=== PATIENT | male | born 1950 | race Caucasian/White ===

== ENCOUNTER 2019-01-01 22:39 | Emergency (ER) | payer MEDICAID, MEDICARE, OTHER ==
[~2019-01-01] VITALS: Ht 167.6 cm; Wt 80.4 kg
[~2019-01-01 22:39] MED LIST: ASPI81TA52 PO; CEFT1FRO2 IV; CIPR500T4 PO; CLOP75TA27 PO; Carvedilol PO; HYDR-4011 PO; INSU100C SC; LANT3I SC; LISI-523 PO; METF100010 PO; METR500T PO; SIMV40TA2 PO
[2019-01-01 22:40] VITALS: Ht 167.6 cm; Wt 80.4 kg
[2019-01-02] MEDS ORDERED: IOHEXOL 300MG/ML 150 ML BTL ONE (01:29)
[2019-01-02] MEDS ORDERED: SOD CHLORIDE 0.9% 100 ML ONE (01:29)
--- NOTE | 2019-01-02 01:41 | ERD ---
ER Documentation Chief Complaint Chief Complaint RECTAL BLEEDING WITH LOW ABD PAIN X1DAY; USES ASA DAILY HPI This is a 68-year-old male complains of left lower quadrant pain onset this morning and this afternoon he had 3 episodes of blood from rectum without stool. He said he felt the urge to defecate but is just a small volume of bright red blood. No history of prior diverticulitis. No fever no back pain no nausea vomiting no anal or rectal pain. The left lower quadrant pain is nonradiating and described as sharp ROS All systems reviewed and are negative except as per history of present illness. Medications Home Meds Active Scripts Hydrocodone/Acetaminophen (Leo 5-325 Tablet) 1 Each Tablet, 1 TAB PO Q6H PRN for PAIN, #16 TAB Prov:KACIE MORENO DO 01/02/19 Metronidazole* (Flagyl*) 500 Mg Tablet, 500 MG PO TID for 10 Days, TAB Prov:KACIE MORENO DO 01/02/19 Ciprofloxacin Hcl* (Ciprofloxacin Hcl*) 500 Mg Tablet, 500 MG PO BID for 10 Days, TAB Prov:KACIE MORENO DO 01/02/19 Insulin Lispro (Humalog) 100 U/Ml Cartridge, 12 UNITS SC AC MEALS for 30 Days, EA Prov:JOSEPH FORD MD 06/03/15 Insulin Glargine* (Lantus*) 100 Unit/Ml Soln, 34 UNIT SC HS for 30 Days, EA Prov:JOSEPH FORD MD 06/03/15 Ceftriaxone Na/Dextrose,Iso (Ceftriaxone 1 Gm Piggyback) 1 G/50 Ml Froz.piggy, 1 G IV DAILY for 8 Days Prov:JOSEPH FORD MD 06/03/15 Lisinopril* (Zestril*) 5 Mg Tab, 5 MG PO DAILY, #30 TAB Prov:JOSEPH FORD MD 06/03/15 [Carvedilol] 6.25 MG TAB No Conflict Check, 6.25 MG PO BID, #60 TAB Prov:JOSEPH FORD MD 06/03/15 Reported Medications Simvastatin* (Zocor*) 40 Mg Tablet, 40 MG PO QHS, #30 TAB 05/29/15 Metformin Hcl* (Metformin Hcl*) 1,000 Mg Tablet, 1000 MG PO BID WITH MEALS, #30 TAB 12/30/15 Clopidogrel Bisulfate (Clopidogrel) 75 Mg Tablet, 75 MG PO DAILY, #30 TAB 05/29/15 Aspirin (Low Dose Aspirin) 81 Mg Tablet.dr, 81 MG PO DAILY 05/29/15 Allergies Allergies: Coded Allergies: No Known Drug Allergy (Verified Allergy, Mild, NA, 05/29/15) PMhx/Soc History of Surgery: Yes (RT EYE CATARACT SX LAST MONTH.STENT X2. gallbladder r emoval) Anesthesia Reaction: No Hx Neurological Disorder: No Hx Respiratory Disorders: No Hx Psychiatric Problems: No Hx Miscellaneous Medical Probl: Yes (DM 2) Hx Alcohol Use: No Hx Substance Use: No Hx Tobacco Use: No Smoking Status: Never smoker FmHx Family History: No coronary disease Physical Exam Vitals Vital Signs Date Temp Pulse Resp B/P (MAP) Pulse Ox O2 O2 Flow FiO2 Time Delivery Rate 01/02/19 97.1 76 14 140/65 97 01:35 (90) 01/01/19 97.1 74 19 137/62 97 23:18 (87) 01/01/19 97.1 80 19 133/63 97 22:40 (86) Physical Exam Const: Well-developed, well-nourished Head: Atraumatic, normocephalic Eyes: Normal Conjunctiva, PERRLA, EOMI, normal sclera, no nystagmus ENT: Normal External Ears, Nose and Mouth, moist mucus membranes. Neck: Full range of motion. No meningismus, no lymphadenopathy. Resp: Clear to auscultation bilaterally, no wheezing, rhonchi, rales Cardio: Regular rate and rhythm, no murmurs, S1 S2 present Abd: Soft, moderate left lower quadrant tenderness, non distended. Normal bowel sounds, no guarding or rebound, no pulsitile abdominal masses or bruits Skin: No petechiae or rashes, no ecchymosis , no maculopapular rash Back: No midline or flank tenderness Ext: No cyanosis, or edema, FROM x 4, normal inspection, neurovascularly intact x 4 Neur: Awake and alert, STR 5/5 x 4, sensation intact x 4, no focal findings, cerebellum intact Psych: Normal Mood and Affect Result Diagram: 01/01/19225801/01/192258 Results 24 hrs Laboratory Tests Test 01/01/19 22:59 White Blood Count 8.9 10^3/ul Red Blood Count 4.14 10^6/ul Hemoglobin 12.7 g/dl Hematocrit 37.4 % Mean Corpuscular Volume 90.3 fl Mean Corpuscular Hemoglobin 30.7 pg Mean Corpuscular Hemoglobin Concent 34.0 g/dl Red Cell Distribution Width 13.5 % Platelet Count 299 10^3/UL Mean Platelet Volume 9.5 fl Immature Granulocytes % 0.700 % Neutrophils % 61.1 % Lymphocytes % 30.2 % Monocytes % 6.4 % Eosinophils % 1.2 % Basophils % 0.4 % Nucleated Red Blood Cells % 0.0 /100WBC Immature Granulocytes # 0.060 10^3/ul Neutrophils # 5.5 10^3/ul Lymphocytes # 2.7 10^3/ul Monocytes # 0.6 10^3/ul Eosinophils # 0.1 10^3/ul Basophils # 0.0 10^3/ul Nucleated Red Blood Cells # 0.0 10^3/ul Prothrombin Time 12.2 Sec Prothrombin Time Ratio 1.0 INR International Normalized Ratio 0.89 Activated Partial Thromboplast Time 27.3 Sec Sodium Level 144 mmol/L Potassium Level 4.1 mmol/L Chloride Level 106 mmol/L Carbon Dioxide Level 27 mmol/L Anion Gap 11 Blood Urea Nitrogen 23 mg/dl Creatinine 1.15 mg/dl Est Glomerular Filtrat Rate mL/min > 60 mL/min Glucose Level 215 mg/dl Calcium Level 9.8 mg/dl Total Bilirubin 0.3 mg/dl Direct Bilirubin 0.00 mg/dl Indirect Bilirubin 0.3 mg/dl Aspartate Amino Transf (AST/SGOT) 22 IU/L Alanine Aminotransferase (ALT/SGPT) 25 IU/L Alkaline Phosphatase 109 IU/L Total Protein 7.2 g/dl Albumin 3.8 g/dl Globulin 3.40 g/dl Albumin/Globulin Ratio 1.11 Current Medications Medications Dose Sig/Diana Start Time Status Last (Trade) Ordered Route PRN Stop Time Admin Dose Reason Admin Sodium 100 ml @ ud STK-MED 01/02/19 DC 01/02/19 Chloride ONCE .ROUTE 01:01/02/19 01:31 01:30 Iohexol 150 ml STK-MED 01/02/19 DC 01/02/19 (Omnipaque ONCE .ROUTE 01:29 8/5/19 01:31 300mg/ ml) 01:30 Ertapenem 1 100 ml @ ONCE ONCE 01/02/19 UNV gm/ Sodium 200 mls/hr IVPB 02:00 01/02/19 Chloride 02:29 Procedures/MDM [place] [id number] Radiology Main Line: [phone] DIAGNOSTIC IMAGING REPORT Patient: ALY ARREAGA : 1950 Age: 68 Sex: M MR #: [id number] DOS: 01/01/19 2256 Ordering MD: KACIE MORENO DO Location: E/R Room/Bed: PROCEDURE: CT Abdomen and Pelvis with contrast. CLINICAL INDICATION: LLQ pain with rectal bleedin TECHNIQUE: CT scan of the abdomen and pelvis with contrast was performed on a multi-detector high-resolution CT scanner. The patient was scanned following the uncomplicated intravenous administration of 100 mL of Omnipaque 300. Multi-planar reformats are provided. Images were reviewed on a high-resolution PACS workstation. The total exam CTDI equals 15 mGy and the total exam DLP equals 1009 mGy-cm. DICOM images are available. One or more of the following dose reduction techniques were utilized: 1.) Automated exposure control 2.) Adjustment of the mA +/- kV according to patient's size 3.) Use of iterative reconstruction technique. COMPARISON: None. FINDINGS: Lower thorax: Bronchiectasis is noted in the left lower lobe with a small air- fluid level noted. There is a small left pleural effusion. Bibasilar atelectasis is present. Liver: Small amount of focal fatty infiltration is seen in the right hepatic lobe inferiorly. Biliary: Gallbladder surgically removed. Common bile duct is prominent, though within normal limits in a cholecystectomy patient. Pancreas: Unremarkable. Spleen: Unremarkable. Adrenals: Unremarkable. Kidneys: There is mild bilateral perinephric stranding, symmetric, and nonspecific. Cyst in the superior pole right kidney measures 2.7 cm. No hydronephrosis. Bowel: The appendix is normal. No small bowel obstruction. Colonic diverticulosis is noted. There is prominent wall thickening and adjacent mesenteric fat stranding within the sigmoid colon, consistent with diverticulitis. Pelvic organs: Penile implant is noted. Peritoneum: No mesenteric fluid collection identified to suggest abscess formation. No free air. No free fluid. Lymph Nodes: Prominent lymph nodes in the left lower abdominal quadrant noted, likely reactive. Vessels: Atherosclerotic disease. Bones and remaining soft tissues: Small fat containing umbilical hernia. Multilevel spinal degenerative changes are seen. No acute bony abnormality identified. IMPRESSION: Acute sigmoid diverticulitis. No evidence of perforation or abscess formation. No obstruction. Mild symmetric bilateral perinephric fat stranding, nonspecific, but can be seen with renal insufficiency. Left lower lobe bronchiectasis with small air-fluid level and small left pleural effusion. RPTAT:HCLE piper Saldana Physician Date Time Electronically viewed and signed by piper Saldana Physician on 01/02/2019 01:30 cE/ CC: KACIE MORENO DO [phone] The patient has acute diverticulitis as the cause of his GI bleed. He has no evidence of peripheral abscess his blood work is relatively stable. I will give him a dose of Invanz 1 g IV here and discharged home with Miguel Waller and have a follow-up if symptoms getting worse Departure Diagnosis: Primary Impression: Acute diverticulitis Additional Impression: Rectal hemorrhage Condition: Stable Patient Instructions: Diverticulitis KACIE MORENO DO Jan 02, 2019 01:40
[2019-01-02] MEDS ORDERED: ERTAPENEM SODIUM 1 GM in SOD CHLORIDE 0.9% 100 ML IVPB ONE (02:00)
[2019-01-02 02:40] VITALS: BP 142/63; PULSE 79; RESP 16
== END 2019-01-02 03:02 | disposition home or self-care (01) ==
LOC: E/R 22:39
DX: K57.32 Diverticulitis of large intestine without perforation or abscess without bleeding (principal); K62.5 Hemorrhage of anus and rectum; E11.9 Type 2 diabetes mellitus without complications; Z79.01 Long term (current) use of anticoagulants; Z79.4 Long term (current) use of insulin
CPT/HCPCS: 36415; 74177; 80053; 85025; 85610; 85730; 96365; 99285; J1335; Q9967